=== PATIENT | female | born 1980 | race Two or more races ===

== ENCOUNTER 2016-12-27 12:17 | Emergency (ER) | payer OTHER ==
[2016-12-27 12:40] VITALS: BMI 27.6
--- NOTE | 2016-12-27 15:22 | PDOC ---
History of Present Illness - General Chief Complaint: Chest Pain Stated Complaint: HEADACHE, DIZZINESS Time Seen by Provider: 12/27/16 14:47 History Source: Patient Exam Limitations: No Limitations - History of Present Illness Initial Comments: 12/27/16 20:01 Patient is a 36 year old female with significant medical hx of asthma and sleep apnea who is presenting to the ED with chest pain and headache. Today the patient developed sharp, intermittent chest pain that is pinching lasting for split seconds at a time. She reports some associated mild shortness of breath and dizziness when she came to the ED but that resolved. The patient also complains of headaches and difficulty sleeping for the past month. The patient saw her PMD last week and was given buspar and quetiapine for anxiety. Denies fever, chills, nausea, vomiting, diarrhea, vision changes, numbness/ tingling/weakness, dysuria, frequency, hematuria, back pain, vaginal discharge, or vaginal bleeding. Past History - Past Medical History Allergies/Adverse Reactions: Allergies Allergy/AdvReac Type Severity Reaction Status Date / Time No Known Allergies Allergy Verified 12/27/16 12:36 Home Medications: Ambulatory Orders Buspirone HCl [Buspar -] 10 mg PO BID 12/27/16 Cetirizine HCl 10 mg PO PRN PRN 12/27/16 Asthma: Yes Other medical history: SLEEP APNEA - Surgical History Abdominal Surgery: Yes (HERNIA.) Cholecystectomy: Yes - Immunization History Immunization Up to Date: Yes - Psycho/Social/Smoking Cessation Hx Anxiety: No Suicidal Ideation: No Smoking History: Never smoked Have you smoked in the past 12 months: No Number of Cigarettes Smoked Daily: 0 Hx Alcohol Use: No Drug/Substance Use Hx: No Substance Use Type: None Review of Systems - Review of Systems Able to Perform ROS?: Yes Comments:: 12/27/16 20:02 CONSTITUTIONAL: Reported: Difficulty Sleeping No reported: Fever, Chills, Diaphoresis, Generalized Weakness, Malaise, Loss of Appetite HEENT: No reported: Rhinorrhea, Nasal Congestion, Throat Pain, Throat Swelling, Difficulty Swallowing, Mouth Swelling, Ear Pain, Eye Pain, Visual Changes CARDIOVASCULAR: Reported: Chest Pain No reported: Syncope, Palpitations, Irregular Heart Rate, Lightheadedness, Peripheral Edema RESPIRATORY: Reported: Shortness of Breath No reported: Cough, SOB with Exertion, Orthopnea, Wheezing, Stridor, Hemoptysis GASTROINTESTINAL: Reported: Left Sided Abdominal Pain No reported: Abdominal Distension, Nausea, Vomiting, Diarrhea, Constipation, Melena, Hematochezia GENITOURINARY: No reported: Dysuria, Frequency, Urgency, Hesitancy, Flank Pain, Genital Pain MUSCULOSKELETAL: No reported: Myalgia, Arthralgia, Joint Swelling, Back pain, Neck Pain SKIN: No reported: Rash, Itching, Pallor HEMEATOLOGIC/IMMUNOLOGIC: No reported: Easy Bleeding, Easy Bruising, Lymphadenopathy, Frequent infections ENDOCRINE: No reported: Unexplained Weight Gain, Unexplained Weight Loss, Heat Intolerance , Cold Intolerance NEUROLOGIC: Reported: Headache, Dizziness No reported: Focal Weakness, Paresthesias, Lightheadedness, Unsteady Gait, Seizure, Mental Status Changes, Incontinence PSYCHIATRIC: No reported: Anxiety, Depression *Physical Exam - Vital Signs Last Vital Signs Temp Pulse Resp BP Pulse Ox 97.8 F 72 14 121/87 98 12/27/16 18:39 12/27/16 18:39 12/27/16 18:39 12/27/16 18:39 12/27/16 18:39 - Physical Exam Comments: 12/27/16 20:02 GENERAL: The patient is awake, alert, and fully oriented, Nontoxic - in no acute distress. HEAD: Normocephalic, atraumatic. EYES: extraocular movements intact, sclera anicteric, conjunctiva clear. ENT: Normal voice, Moist mucous membranes. NECK: Normal range of motion, supple LUNGS: Breath sounds equal, clear to auscultation bilaterally. No wheezes, no rhonchi, no rales. HEART: Regular rate and rhythm, normal S1 and S2 without murmur, rub or gallop. ABDOMEN: Soft, nontender, normoactive bowel sounds. No guarding, no rebound. . No CVA tenderness EXTREMITIES: Normal range of motion, no edema. No clubbing or cyanosis. No cords, erythema, or tenderness. NEUROLOGICAL: No facial assymetry, Normal speech, PSYCH: Normal mood, normal affect. SKIN: Warm, Dry, normal turgor, Heart Score/ECG Review - ECG Impressions Comment:: 12/27/16 16:04 Twelve-lead EKG was performed and reviewed by me. There is normal sinus rhythm with a normal rate. rateof 63 The axis is normal. The intervals are normal. There is normal R wave progression There are no ST or T wave abnormalities. Impression: Normal twelve-lead EKG ED Treatment Course - LABORATORY CBC & Chemistry Diagram: 12/27/16 16:35 12/27/16 16:22 - ADDITIONAL ORDERS Additional order review: Laboratory Results 12/27/16 12/27/16 12/27/16 16:22 16:22 15:23 Sodium 139 Potassium 4.1 Chloride 103 Carbon Dioxide 28 Anion Gap 8 BUN 10 Creatinine 0.7 Creat Clearance w eGFR > 60 Random Glucose 91 D Calcium 9.3 Total Bilirubin 0.3 D AST 15 ALT 14 D Alkaline Phosphatase 64 Total Protein 7.3 Albumin 3.9 Urine Color Straw Urine Appearance Clear Urine pH 7.0 D Ur Specific [place] 1.008 Urine Protein Negative Urine Glucose (UA) Negative Urine Ketones Negative Urine Blood Negative Urine Nitrite Negative Urine Bilirubin Negative Urine Urobilinogen Negative Ur Leukocyte Esterase Trace H D Urine RBC 3 Urine WBC 3 Ur Epithelial Cells Rare Urine Mucus Rare Urine HCG, Qual Negative 12/27/16 16:35 RBC 4.43 MCV 79.6 L MCHC 33.9 RDW 15.0 MPV 8.9 Neutrophils % 42.6 L D Lymphocytes % 42.5 H D Monocytes % 6.5 Eosinophils % 7.4 H D Basophils % 1.0 - Medications Given in the ED: ED Medications Discontinued Medications Generic Name Dose Route Start Last Admin Trade Name Freq PRN Reason Stop Dose Admin Sodium Chloride 1,000 mls @ 1,000 mls/hr 12/27/16 15:23 12/27/16 16:25 Normal Saline - IV 12/27/16 16:22 1,000 mls/hr .Q1H ONE Administration Metoclopramide HCl 10 mg 12/27/16 15:23 12/27/16 16:25 Reglan Injection - IVPUSH 12/27/16 15:24 10 mg ONCE ONE Administration Medical Decision Making - Medical Decision Making 12/27/16 15:42 36y F presneting with several episodes of pinching like chest pain today, she also endorses a intemrittent diffuse headacahce, pt does endorse having trouble sleeping over the past month. pt states when she came to the ED she experienced a brief episodeof dizziness/lightheadedness. On exam the patient has an unremarkable exam. will obtain ekg, cxr will ck lab to r/o anemia, metabolic derangement, , uti will give fluids, scott 12/27/16 18:18 labs reviewed unremarkble pt feeling improved will dc the pt with pmd fu suspect her headache is related to decerased sleep/tension headache will have pt fu with pmd return precautions were discussed I discussed the physical exam findings, ancillary test results and final diagnoses with the patient. I answered all of the patient's questions. The patient was satisfied with the care received and felt comfortable with the discharge plan and treatment plan. The patient will call their primary care physician within 24 hours to arrange follow-up and will return to the Emergency Department with any new, persistent or worsening symptoms. *DC/Admit/Observation/Transfer Diagnosis at time of Disposition: Headache Qualifiers: Headache type: tension-type Headache chronicity pattern: acute headache Intractability: not intractable Qualified Code(s): G44.209 - Tension-type headache, unspecified, not intractable Chest pain Qualifiers: Chest pain type: unspecified Qualified Code(s): R07.9 - Chest pain, unspecified - Discharge Dispostion Disposition: HOME Condition at time of disposition: Improved Admit: No - Patient Instructions Printed Discharge Instructions: DI for Atypical Chest Pain, DI for Hormonal and Tension Headaches Additional Instructions: Return to the emergency department immediately with ANY new, persistent or worsening symptoms. You MUST call and follow up with your doctor tomorrow for further evaluation of your symptoms. Results were discussed with you. Please make sure your doctor reviews the results of your emergency evaluation. If you had any xrays during your visit, it was read preliminarily by myself, a Radiologist will review it and if there are any additional findings we will call you. Print Language: TURKISH
[2016-12-27] MEDS ORDERED: SODIUM CHLORIDE 1,000 ML IV ONE (15:23)
[2016-12-27] MEDS ORDERED: METOCLOPRAMIDE HCL INJECTION 10 MG/2 ML VIAL IVPUSH ONE (15:23)
[2016-12-27] MEDS ORDERED: METOCLOPRAMIDE HCL INJECTION 10 MG/2 ML VIAL ONE (16:21)
[2016-12-27 16:40] LABS: EOSINOPHIL 7.4 % (0-4.5); MCHC 33.9 g/dl (32.0-36.0); MEAN CELL VOLUME 79.6 fl (80-96); MEAN PLT VOLUME 8.9 fl (7.5-11.1); NEUTROPHILS 42.6 % (42.8-82.8); PLATELET COUNT 259 K/MM3 (134-434); WHITE BLOOD COUNT 4.9 K/mm3 (4.0-10.0)
[2016-12-27 16:43] LABS: URINE APPEARANCE CLEAR; URINE BILIRUBIN NEGATIVE (NEGATIVE); URINE BLOOD NEGATIVE (NEGATIVE); URINE COLOR STRAW; URINE GLUCOSE (UA) NEGATIVE (NEGATIVE); URINE KETONE NEGATIVE (NEGATIVE); URINE NITRITE NEGATIVE (NEGATIVE); URINE PROTEIN NEGATIVE (NEGATIVE); URINE UROBILINOGEN NEGATIVE E.U./dl (0.2-1.0)
[2016-12-27 16:48] LABS: URINE LEUK ESTERASE TRACE (NEGATIVE)
[2016-12-27 17:06] LABS: URINE MUCUS RARE; URINE RBC 3 /hpf (0-3); URINE WBC 3 /hpf (3-5)
[2016-12-27 17:13] LABS: ALBUMIN 3.9 g/dl (3.4-5.0); ANION GAP 8 (8-16); CALCIUM 9.3 mg/dL (8.5-10.1); CO2 28 mmol/L (21-32); CREATININE 0.7 mg/dL (0.55-1.02); GLUCOSE,RANDOM 91 mg/dL (74-106); SGOT/AST 15 U/L (15-37); SGPT/ALT 14 U/L (12-78)
[2016-12-27 17:15] LABS: ALK PHOS 64 U/L (45-117); BILIRUBIN,TOTAL 0.3 mg/dL (0.2-1.0); TOT PROT 7.3 g/dl (6.4-8.2)
--- NOTE | 2016-12-27 17:25 | EKG ---
Test Reason : Blood Pressure : / mmHG Vent. Rate : 063 BPM Atrial Rate : 063 BPM P-R Int : 160 ms QRS Dur : 082 ms QT Int : 398 ms P-R-T Axes : 029 053 036 degrees QTc Int : 407 ms NORMAL SINUS RHYTHM NORMAL ECG WHEN COMPARED WITH ECG OF 28-DEC-2014 14:52, NO SIGNIFICANT CHANGE WAS FOUND Confirmed by MARCIANO MORRIS MD ([id number]) on 12/27/2016 5:25:32 PM Referred By: Confirmed By:MARCIANO MORRIS MD
[2016-12-27 18:41] VITALS: BP 121/87; PULSE 72; TEMP 97.8
== END 2016-12-27 18:43 | disposition home or self-care (01) ==
LOC: JER 12:17
PROC: 3E033GC Introduction of Other Therapeutic Substance into Peripheral Vein, Percutaneous Approach (ICD-10-PCS; principal; 2016-12-27)
DX: R07.89 Other chest pain (principal); J45.909 Unspecified asthma, uncomplicated; G47.30 Sleep apnea, unspecified
CPT/HCPCS: 36415; 80053; 81003; 81015; 84703; 85025; 93005; 93010; 96374; 99284-25

== ENCOUNTER 2018-01-20 17:42 | Emergency (ER) | payer OTHER ==
[2018-01-20 17:48] VITALS: BMI 29.0
--- NOTE | 2018-01-20 19:15 | PDOC ---
History of Present Illness - General Chief Complaint: Headache Stated Complaint: HEADACHE Time Seen by Provider: 01/20/18 18:00 History Source: Patient Exam Limitations: No Limitations - History of Present Illness Initial Comments: This is a 37 YOF with h/o depression, anxiety, fibromyalgia, and VIOLETA (uses CPAP ) who presents c/o worsening depression and anxiety. She explains that her living situation has been exacerbating her depression and she also has been unable to sleep because her brother comes home in the middle of the night and turns his music on loudly. She takes no psychiatric medications. She has been trying to follow up with her psychiatrist and to find a new counselor, but has not been able to reach them by phone. She believes she needs a new psychiatrist. She additionally notes occasional chills, diarrhea, and hot/cold flashes. She denies any fever, nausea, vomiting, constipation, chest pain, SOB, abdominal pain, drug or alcohol use, suicidal or homicidal ideation, or h/o suicide attempts. Past History - Past Medical History Allergies/Adverse Reactions: Allergies Allergy/AdvReac Type Severity Reaction Status Date / Time Penicillins Allergy Verified 01/20/18 21:13 Home Medications: Ambulatory Orders Cetirizine HCl 10 mg PO PRN PRN 12/27/16 Albuterol Sulfate Inhaler - [Ventolin Hfa Inhaler -] 1 puff IH PRN 01/20/18 Cetirizine HCl [Zyrtec -] 10 mg PO DAILY 01/20/18 Montelukast Sodium [Singulair] 10 mg PO DAILY 01/20/18 Omeprazole 20 mg PO DAILY 01/20/18 Zolpidem Tartrate [Ambien] 10 mg PO HS 01/20/18 Asthma: Yes COPD: No - Surgical History Abdominal Surgery: Yes (HERNIA.) Cholecystectomy: Yes - Immunization History Immunization Up to Date: Yes - Suicide/Smoking/Psychosocial Hx Smoking History: Never smoked Have you smoked in the past 12 months: No Number of Cigarettes Smoked Daily: 0 Information on smoking cessation initiated: No Hx Alcohol Use: No Drug/Substance Use Hx: No Substance Use Type: None Review of Systems - Review of Systems Able to Perform ROS?: Yes Constitutional: No: Chills, Fever, Unexplained wgt Loss HEENTM: No: Nose Congestion, Throat Pain Respiratory: Yes: Shortness of Breath. No: Cough Cardiac (ROS): No: Chest Pain, Palpitations ABD/GI: No: Constipated, Diarrhea, Nausea, Vomiting : No: Burning, Dysuria Musculoskeletal: Yes: Neck Pain. No: Back Pain Integumentary: No: Bruising, Rash Neurological: Yes: Headache. No: Numbness, Tingling, Weakness, Dizziness Psychiatric: Yes: Anxiety, Depression, Other (insomnia) Endocrine: Yes: Intolerance to Cold, Intolerance to Heat. No: Unexplained Weight Gain, Unexplained Weight Loss *Physical Exam - Vital Signs Last Vital Signs Temp Pulse Resp BP Pulse Ox 97.4 F L 89 84 H 125/86 99 01/20/18 17:44 01/20/18 17:44 01/20/18 17:44 01/20/18 17:44 01/20/18 17:44 - Physical Exam General Appearance: Yes: Nourished, Appropriately Dressed, Other (alert, oriented, pleasant adult female who appears depressed, answering questions appropriately). No: Apparent Distress HEENT: positive: EOMI, Normal Voice, Hearing Grossly Normal. negative: Scleral Icterus (R), Scleral Icterus (L), Nasal Congestion Neck: positive: Trachea midline, Supple. negative: Tender, Rigid Respiratory/Chest: positive: Lungs Clear, Normal Breath Sounds. negative: Respiratory Distress, Crackles, Rhonchi, Stridor, Wheezing Cardiovascular: positive: Regular Rhythm, Regular Rate. negative: Murmur Gastrointestinal/Abdominal: positive: Normal Bowel Sounds, Soft. negative: Tender, Organomegaly, Pulsatile Mass, Guarding Musculoskeletal: positive: Normal Inspection. negative: Decreased Range of Motion, Vertebral Tenderness Extremity: positive: Normal Capillary Refill, Normal Inspection, Normal Range of Motion. negative: Tender, Cyanosis Integumentary: positive: Normal Color, Dry, Warm. negative: Erythema, Rash, Bruising Neurologic: positive: baby sitter II-XII NML intact, Fully Oriented, Alert, Normal Mood/ Affect, Normal Response, Motor Strength /5 ED Treatment Course - LABORATORY CBC & Chemistry Diagram: 01/20/18 19:40 01/20/18 19:40 Medical Decision Making - Medical Decision Making Adult patient p/w worsening depression and anxiety. Initial Vital Signs Temp Pulse Resp BP Pulse Ox 97.4 F L 89 84 H 125/86 99 01/20/18 17:44 01/20/18 17:44 01/20/18 17:44 01/20/18 17:44 01/20/18 17:44 Exam: Appears depressed but not suicidal or homicidal, slightly enlarged thyroid DDX IBNLT: psychiatric (chronic depression/anxiety), toxic-metabolic (e.g. medications, drugs, electrolytes, thyroid), infectious (e.g. UTI, meningitis). W/U ordered: CBCD CMP Mg Phos TSH UA UCx EKG TX ordered: Tylenol PO for patient's stated headache Laboratory Tests 01/20/18 01/20/18 01/20/18 19:40 19:40 19:45 WBC 4.7 RBC 4.16 Hgb 11.7 Hct 33.4 MCV 80.2 MCH 28.1 MCHC 35.1 RDW 14.2 Plt Count 231 MPV 9.2 Neutrophils % 47.8 Lymphocytes % 34.0 Monocytes % 8.9 Eosinophils % 8.4 H Basophils % 0.9 Sodium 136 Potassium 4.6 Chloride 105 Carbon Dioxide 25 Anion Gap 6 L BUN 13 Creatinine 0.7 Creat Clearance w eGFR > 60 Random Glucose 91 Calcium 9.0 Phosphorus 4.0 Magnesium 2.0 Total Bilirubin 0.2 D AST 16 ALT 18 Alkaline Phosphatase 52 Total Protein 7.3 Albumin 3.8 TSH 0.46 Urine Color Colorless Urine Appearance Clear Urine pH 7.0 Ur Specific [place] 1.002 Urine Protein Negative Urine Glucose (UA) Negative Urine Ketones Negative Urine Blood 3+ H Urine Nitrite Negative Urine Bilirubin Negative Urine Urobilinogen Negative Ur Leukocyte Esterase Negative Urine WBC (Auto) 3 Urine RBC (Auto) 19 Ur Epithelial Cells Rare Reassessment: Patient states pain much improved. Vital Signs Temperature 98.6 F 01/20/18 21:49 Pulse Rate 86 01/20/18 21:49 Respiratory Rate 19 01/20/18 21:49 Blood Pressure 110/78 01/20/18 21:49 O2 Sat by Pulse Oximetry (%) 99 01/20/18 17:44 Workup is not concerning for emergency-level pathology at this time. The patient states her pain has improved after Tylenol and she continues to deny SI/HI. She feels safe and comfortable at home. The patient is appropriate for discharge with close outpatient follow up. The patient is comfortable with this plan and will follow up with their PCP in 1 -3 days. She is given referral information for psychiatry and primary care. Return precautions are discussed and they will come back to the ER if necessary. *DC/Admit/Observation/Transfer Diagnosis at time of Disposition: Anxiety Depression Qualifiers: Depression Type: unspecified Qualified Code(s): F32.9 - Major depressive disorder, single episode, unspecified Insomnia Qualifiers: Insomnia type: unspecified Qualified Code(s): G47.00 - Insomnia, unspecified Headache Qualifiers: Headache type: unspecified Headache chronicity pattern: unspecified pattern Intractability: not intractable Qualified Code(s): R51 - Headache - Discharge Dispostion Disposition: HOME Condition at time of disposition: Stable Decision to Admit order: No - Referrals Referrals: Abbi Mcclelland MD [Primary Care Provider] - Pia Severino MD [Staff Physician] - [facility] [Provider Group] - Patient Instructions Printed Discharge Instructions: DI for Insomnia Additional Instructions: You were seen in the ER for depression, anxiety, and insomnia. After our assessment, we do not believe you are having a medical emergency at this time, and we believe you are safe to go home. Please follow up with your regular PCP doctor in 1-3 days. Also follow up with a psychiatrist. Call their clinic as soon as possible, tell them you were seen in the ER, and tell them you need an appointment. Take melatonin 5 mg or 10 mg if you need something to help you sleep and do not want to take your normal Ambien. If you have any new or worsening symptoms, please come back to the ER at any time (24 hours a day). If you are having severe or life threatening symptoms, or symptoms that make it unsafe to drive or have someone drive you, please call 911. - Post Discharge Activity
[2018-01-20 19:48] LABS: BASO % 0.9 % (0-2.0); EOS % 8.4 % (0-4.5); HEMATOCRIT 33.4 % (32.4-45.2); HEMOGLOBIN 11.7 GM/dL (10.7-15.3); MCH 28.1 pg (25.7-33.7); MCHC 35.1 g/dl (32.0-36.0); MEAN CELL VOLUME 80.2 fl (80-96); MEAN PLT VOLUME 9.2 fl (7.5-11.1); MONO % 8.9 % (3.8-10.2); NEUT % 47.8 % (42.8-82.8); PLATELET COUNT 231 K/MM3 (134-434); RBC 4.16 M/mm3 (3.60-5.2); RDW 14.2 % (11.6-15.6); WHITE BLOOD COUNT 4.7 K/mm3 (4.0-10.0)
[2018-01-20 20:06] LABS: URINE APPEARANCE CLEAR; URINE BILIRUBIN NEGATIVE (<2.0 mg/dL); URINE BLOOD 3+ (NEGATIVE); URINE COLOR COLORLESS; URINE GLUCOSE (UA) NEGATIVE (NEGATIVE); URINE KETONE NEGATIVE (NEGATIVE); URINE LEUK ESTERASE NEGATIVE (NEGATIVE); URINE NITRITE NEGATIVE (NEGATIVE); URINE PROTEIN NEGATIVE (NEGATIVE); URINE UROBILINOGEN NEGATIVE mg/dL (0.2-1.0)
--- NOTE | 2018-01-20 20:12 | PDOC ---
Attending Attestation - HPI HPI: 01/20/18 20:31 The patient is a 37 year old female with significant past medical history of anxiety, depression, asthma, fibromyalgia, VIOLETA (uses CPAP) and sleep apnea who presents to the ED for evaluation of worsened depression anxiety, and panic attack. The patient reports she is unable to get proper sleep in her new residence ([facility]) because he plays music at night. The patient reports associated head and neck pain, which is normally typical with psychiatric flare- ups. Of note, she has a history of admissions for similar symptoms, with no difference in symptoms today. The patient reports associated symptoms of headache, chills, and diarrhea. Denies chest pain, abdominal pain, dyspnea, fever, nausea, vomiting, and constipation. She denies suicidal or homicidal ideations. <Morenita Adams - Last Filed: 01/20/18 20:31> - Resident Resident Name: Wallace,Mary - ED Attending Attestation I have performed the following: I have examined & evaluated the patient, The case was reviewed & discussed with the resident, I agree w/resident's findings & plan, Exceptions are as noted - Physicial Exam PE: 01/20/18 21:41 Patient is awake and alert, well-appearing, in no distress Normocephalic, atraumatic PERRLA, EOMI CTA RRR Cranial nerves II through XII grossly intact; motor is 5 of 54;, gait is stable , no pronation drift. - Medical Decision Making 01/20/18 21:42 37-year-old female with history of anxiety, chronic headaches presents to the ER with atraumatic headache consistent with her previous episodes, increased stress due to social conditions. Patient denies suicidal/homicidal ideations. I do not suspect subarachnoid hemorrhage or meningitis at this time. Will treat pain with [id number] medication. Will discharge. <John Marie - Last Filed: 01/20/18 21:42> Attestations - Attestations Documentation prepared by Morenita Adams, acting as medical engineer for John Marie MD. <Morenita Adasm - Last Filed: 01/20/18 20:31>
[2018-01-20 20:20] LABS: ALBUMIN 3.8 g/dl (3.4-5.0); ANION GAP 6 (8-16); BILIRUBIN,TOTAL 0.2 mg/dL (0.2-1.0); BLOOD UREA NITROGEN 13 mg/dL (7-18); CHLORIDE 105 mmol/L (98-107); CO2 25 mmol/L (21-32); CREATININE 0.7 mg/dL (0.55-1.02); GLUCOSE,RANDOM 91 mg/dL (74-106); POTASSIUM 4.6 mmol/L (3.5-5.1); SGOT/AST 16 U/L (15-37); SGPT/ALT 18 U/L (12-78); SODIUM 136 mmol/L (136-145); TOT PROT 7.3 g/dl (6.4-8.2)
[2018-01-20 20:28] LABS: ALK PHOS 52 U/L (45-117)
[2018-01-20 20:33] LABS: EPI CELLS RARE /HPF (FEW)
[2018-01-20] MEDS ORDERED: ACETAMINOPHEN 325 MG TABLET (FP) ONE (20:33)
[2018-01-20] MEDS ORDERED: ACETAMINOPHEN 500 MG TABLET (FP) PO ONE (20:46)
[2018-01-20 21:49] VITALS: BP 110/78; PULSE 86; TEMP 98.6
== END 2018-01-20 21:49 | disposition home or self-care (01) ==
LOC: JER 17:42
DX: F32.9 Major depressive disorder, single episode, unspecified (principal); F41.9 Anxiety disorder, unspecified; G47.00 Insomnia, unspecified; G47.33 Obstructive sleep apnea (adult) (pediatric)
CPT/HCPCS: 36415; 80053; 81003; 81015; 83735; 84100; 84443; 85025; 87086; 99282-25

== ENCOUNTER 2019-04-01 17:23 | Emergency (ER) | payer OTHER ==
[2019-04-01 17:38] VITALS: BP 121/92; PULSE 84; TEMP 97.5; BMI 32.3
[2019-04-01] MEDS ORDERED: ASPIRIN 81 MG CHEWABLE TABLETS PO ONE (21:22)
[2019-04-01 22:02] LABS: BASO % 1.4 % (0-2.0); EOS % 2.6 % (0-4.5); LYMPH % 31.9 % (8-40); MCH 27.5 pg (25.7-33.7); MCHC 34.4 g/dl (32.0-36.0); MEAN PLT VOLUME 8.8 fl (7.5-11.1); MONO % 6.8 % (3.8-10.2); NEUT % 57.3 % (42.8-82.8); PLATELET COUNT 266 K/MM3 (134-434); RBC 4.38 M/mm3 (3.60-5.2); RDW 14.2 % (11.6-15.6); WHITE BLOOD COUNT 6.4 K/mm3 (4.0-10.0)
[2019-04-01 22:20] LABS: INR 1.07 (0.83-1.09); PROTHROMBIN TIME (PATIENT) 12.6 SEC (9.7-13.0)
[2019-04-01 22:39] LABS: ALBUMIN 4.2 g/dl (3.4-5.0); ALK PHOS 64 U/L (45-117); ANION GAP 7 MMOL/L (8-16); BILIRUBIN,TOTAL 0.4 mg/dL (0.2-1); BLOOD UREA NITROGEN 14.2 mg/dL (7-18); CALCIUM 9.2 mg/dL (8.5-10.1); CHLORIDE 108 mmol/L (98-107); CO2 26 mmol/L (21-32); CREATININE 0.9 mg/dL (0.55-1.3); GLUCOSE,RANDOM 115 mg/dL (74-106); MAGNESIUM 2.4 mg/dL (1.8-2.4); POTASSIUM 4.2 mmol/L (3.5-5.1); SGOT/AST 18 U/L (15-37); SGPT/ALT 23 U/L (13-61); SODIUM 140 mmol/L (136-145); TOT PROT 7.6 g/dl (6.4-8.2)
--- NOTE | 2019-04-02 12:07 | EKG ---
Test Reason : Blood Pressure : / mmHG Vent. Rate : 085 BPM Atrial Rate : 085 BPM P-R Int : 156 ms QRS Dur : 080 ms QT Int : 366 ms P-R-T Axes : 020 057 053 degrees QTc Int : 435 ms NORMAL SINUS RHYTHM SEPTAL INFARCT , AGE UNDETERMINED ABNORMAL ECG WHEN COMPARED WITH ECG OF 27-DEC-2016 12:56, SEPTAL INFARCT IS NOW PRESENT Confirmed by Wilian Marroquin ([id number]) on 04/02/2019 12:06:51 PM Referred By: Confirmed By:Wilian Marroquin
--- NOTE | 2019-04-03 03:49 | PDOC ---
Documentation entered by Jacqueline Casas SCRIBE, acting as scribe for Zuleyma Coleman MD. Zuleyma Coleman MD: This documentation has been prepared by the Yessenia garibay Sammi, SCRIBE, under my direction and personally reviewed by me in its entirety. I confirm that the documentation accurately reflects all work, treatment, procedures, and medical decision making performed by me. History of Present Illness - General Chief Complaint: Chest Pain Stated Complaint: CHEST PAIN, SLEEP APNEA Time Seen by Provider: 04/01/19 20:31 History Source: Patient Exam Limitations: No Limitations - History of Present Illness Initial Comments: 04/01/19 21:42 The patient is a 38 year old female, with a significant PMH of sleep apnea, fibromyalgia, asthma (albuterol, advair, prn), who presents to the emergency department for evaluation of insomnia and chest pain due to sleep apnea. The patient reports she feels like she is suffocating and states that she is under a lot of stress. Allergies: Penicillin Surgical history: tummy tuck, bilateral breast augmentation Social history: Non smoker, non drinker Family history: Mother - DM, asthma, Sister - asthma Past History - Past Medical History Allergies/Adverse Reactions: Allergies Allergy/AdvReac Type Severity Reaction Status Date / Time Penicillins Allergy Verified 04/01/19 17:38 Home Medications: Ambulatory Orders Cetirizine HCl 10 mg PO PRN PRN 12/27/16 Albuterol Sulfate Inhaler - [Ventolin Hfa Inhaler -] 1 puff IH PRN 01/20/18 Cetirizine HCl [Zyrtec -] 10 mg PO DAILY 01/20/18 Montelukast Sodium [Singulair] 10 mg PO DAILY 01/20/18 Omeprazole 20 mg PO DAILY 01/20/18 Zolpidem Tartrate [Ambien] 10 mg PO HS 01/20/18 Asthma: Yes COPD: No Other medical history: sleep apnea, fibromyalgia - Surgical History Abdominal Surgery: Yes (HERNIA.) Cholecystectomy: Yes - Immunization History Immunization Up to Date: Yes - Suicide/Smoking/Psychosocial Hx Smoking History: Never smoked Have you smoked in the past 12 months: No Number of Cigarettes Smoked Daily: 0 Information on smoking cessation initiated: No Hx Alcohol Use: No Drug/Substance Use Hx: No Substance Use Type: None Review of Systems - Review of Systems Comments:: 04/01/19 21:44 CONSTITUTIONAL: (+)trouble sleeping Absent: fever, no chills, no fatigue EYES: Absent: visual changes ENT: Absent: ear pain, no sore throat CARDIOVASCULAR: (+)chest pain RESPIRATORY: (+)feels like she is suffocating Absent: cough GI: Absent: abdominal pain, no nausea, no vomiting, no constipation, no diarrhea GENITOURINARY: Absent: dysuria, no frequency, no hematuria MUSKULOSKELETAL: Absent: back pain, no arthralgia, no myalgia SKIN: Absent: rash NEURO: Absent: headache *Physical Exam - Vital Signs Last Vital Signs Temp Pulse Resp BP Pulse Ox 97.5 F L 84 19 121/92 100 04/01/19 17:36 04/01/19 17:36 04/01/19 17:36 04/01/19 17:36 04/01/19 17:36 - Physical Exam Comments: 04/01/19 21:45 GENERAL: Well-appearing, well-nourished. No apparent distress. HEENT: Normocephalic, atraumatic. PERRL, EOM intact. CARDIOVASCULAR: Normal S1, S2. Regular rate and rhythm. PULMONARY: Clear to auscultation bilaterally. ABDOMEN: Soft, non-distended, non-tender. EXTREMITIES: Normal ROM in all four extremities. No gross deformities. SKIN: Warm, dry. No rash NEUROLOGICAL: No focal neurological deficits. ED Treatment Course - LABORATORY CBC & Chemistry Diagram: 04/01/19 21:45 04/01/19 21:45 - ADDITIONAL ORDERS Additional order review: Laboratory Results 04/01/19 04/01/19 04/01/19 21:45 21:45 21:45 PT with INR INR D-Dimer 389 Sodium 140 Potassium 4.2 Chloride 108 H Carbon Dioxide 26 Anion Gap 7 L BUN 14.2 Creatinine 0.9 Est GFR (CKD-EPI)AfAm 94.01 Est GFR (CKD-EPI)NonAf 81.11 Random Glucose 115 H Calcium 9.2 Magnesium 2.4 Total Bilirubin 0.4 AST 18 ALT 23 Alkaline Phosphatase 64 Creatine Kinase 148 Troponin I < 0.02 Total Protein 7.6 Albumin 4.2 Serum , Qual Negative 04/01/19 21:45 PT with INR 12.60 INR 1.07 D-Dimer Sodium Potassium Chloride Carbon Dioxide Anion Gap BUN Creatinine Est GFR (CKD-EPI)AfAm Est GFR (CKD-EPI)NonAf Random Glucose Calcium Magnesium Total Bilirubin AST ALT Alkaline Phosphatase Creatine Kinase Troponin I Total Protein Albumin Serum , Qual 04/01/19 21:45 RBC 4.38 MCV 80.0 MCHC 34.4 RDW 14.2 MPV 8.8 Neutrophils % 57.3 Lymphocytes % 31.9 Monocytes % 6.8 Eosinophils % 2.6 Basophils % 1.4 - Medications Given in the ED: ED Medications Discontinued Medications Generic Name Dose Route Start Last Admin Trade Name Freq PRN Reason Stop Dose Admin Aspirin 162 mg 04/01/19 21:22 04/01/19 21:25 Asa - PO 04/01/19 21:23 Not Given ONCE ONE Medical Decision Making - Medical Decision Making 04/01/19 22:36 female presents because she has had some difficulty sleeping that she states is due to her stress at home and sleep apnea. EKG is normal sinus rhythm with no signs of ischemiaor arrhythmia In reviewing her labs, her CBC is normal. There is no anemia, no leukocytosis 04/01/19 22:37 her coags are normal. NEGATIVE TROPONIN Her d-dimer is less than 500. She is a negative test Differential diagnosis includes anxietypanic attack atypical chest pain. Plan patient is to follow-up with her primary care physician 04/01/19 23:01 *DC/Admit/Observation/Transfer Diagnosis at time of Disposition: Atypical chest pain - Discharge Dispostion Disposition: HOME Condition at time of disposition: Good - Referrals Referrals: Kentrell Nichols MD [Primary Care Provider] - - Patient Instructions Printed Discharge Instructions: DI for Atypical Chest Pain Additional Instructions: PLEASE FOLLOW UP WITH YOUR REGULAR PHYSICIAN RETURN FOR ANY WORSENING SYMPTOMS - Post Discharge Activity
== END 2019-04-01 23:12 | disposition home or self-care (01) ==
LOC: JER 17:23
DX: R07.9 Chest pain, unspecified (principal); G47.39 Other sleep apnea; M79.7 Fibromyalgia; J45.909 Unspecified asthma, uncomplicated
CPT/HCPCS: 36415; 80053; 82550; 83735; 84484; 84703; 85025; 85379; 85610; 93005; 93010; 99282-25